=== PATIENT | female | born 1995 | race Caucasian/White ===

== ENCOUNTER 2021-12-10 08:56 | Outpatient (CLI) | payer BC | END 2021-12-10 08:57 | disposition home or self-care (01) | LOC: CSHRAD 08:56 | PROVIDERS: ATTEND Internal Medicine Pulmonary Disease | DX: R13.10 Dysphagia, unspecified (principal); R06.00 Dyspnea, unspecified | CPT/HCPCS: 74220; 94010; 94726; 94729; 94760 ==

== ENCOUNTER 2023-08-17 20:55 | Emergency (ER) | payer SELFPAY ==
[2023-08-17 22:18] LABS: #Basophils 0.1 10x3/uL (0.0-0.2); #Eosinphils 0.1 10x3/uL (0.0-0.5); #Monocytes 0.4 10x3/uL (0.0-1.1); #Neutrophils 4.2 10x3/uL (1.5-8.4); %Basophils 0.9 % (0.0-2.0); %Eosinophils 0.9 % (0.0-6.0); %Lymphocytes 26.3 % (18.0-47.0); %Monocytes 6.8 % (0.0-10.0); %Neutrophils 64.9 % (40.0-75.0); Hemoglobin 12.7 g/dL (12.0-15.5); Mean Corpuscular HGB CONC 35.3 g/dL (32.0-36.0); Mean Corpuscular Hemoglobin 31.8 pg (27.0-33.0); Mean Platelet Volume 12.3 fl (7.4-10.4); Platelet Count 179 10x3/uL (150-450); RBC Distribution Width 12.5 % (11.5-14.5); White Blood Cell (WBC) Count 6.5 10x3/uL (3.5-10.5)
[2023-08-17 22:31] LABS: ALT (SGPT) 9 U/L (8-55); AST (SGOT) 17 U/L (5-34); Albumin 4.3 g/dL (3.5-5.0); Alkaline Phosphatase 59 U/L (40-110); Anion Gap 14 mmol/L (10-20); BUN (Urea Nitrogen) 10 mg/dL (7.0-18.7); Bilirubin, Total 0.4 mg/dL (0.2-1.2); Calc. Creatinine Clearance 0 mL/min (70-130); Carbon Dioxide 21 mmol/L (22-29); Chloride 105 mmol/L (98-107); Estimated GFR 80; Globulin 3.3 g/dL (2.4-3.5); Glucose 97 mg/dL (70-105); Potassium 4.2 mmol/L (3.5-5.1); Protein, Total 7.6 g/dL (6.0-8.3); Sodium 136 mmol/L (136-145)
[2023-08-17 22:36] LABS: BHCG - Serum Negative (NEGATIVE); Pregs Control Background? CLEAR/WHITE (CLR/WHITE); Pregs Control Bar Appear? YES (CONTROL BAR)
[2023-08-17 22:37] LABS: Troponin I Less than 0.010 ng/mL (< 0.028)
== END 2023-08-18 00:33 | disposition home or self-care (01) ==
LOC: CSHERS 20:55
DX: R42 Dizziness and giddiness (principal); R07.89 Other chest pain
CPT/HCPCS: 80053; 84484; 84703; 85025; 85379; 93005

== ENCOUNTER 2023-08-27 05:31 | Emergency (ER) | payer SELFPAY ==
[2023-08-27] MEDS ORDERED: Ondansetron PF 4 MG/2 ML Vial ONE (06:08)
[2023-08-27] MEDS ORDERED: Promethazine HCl 12.5 MG in Sodium Chloride 0.9% 50 ML IVPB SCH (06:30)
[2023-08-27 06:37] LABS: #Eosinphils 0.1 10x3/uL (0.0-0.5); #Monocytes 0.3 10x3/uL (0.0-1.1); #Neutrophils 1.6 10x3/uL (1.5-8.4); %Basophils 0.7 % (0.0-2.0); %Eosinophils 1.2 % (0.0-6.0); %Lymphocytes 50.7 % (18.0-47.0); %Monocytes 8.3 % (0.0-10.0); %Neutrophils 39.1 % (40.0-75.0); Hemoglobin 12.7 g/dL (12.0-15.5); Mean Corpuscular HGB CONC 34.3 g/dL (32.0-36.0); Mean Corpuscular Volume 90.2 fl (81.6-98.3); Mean Platelet Volume 12.1 fl (7.4-10.4); Platelet Count 153 10x3/uL (150-450); RBC Distribution Width 12.6 % (11.5-14.5); White Blood Cell (WBC) Count 4.1 10x3/uL (3.5-10.5)
[2023-08-27 06:38] LABS: BHCG - Serum Negative (NEGATIVE); Pregs Control Background? CLEAR/WHITE (CLR/WHITE); Pregs Control Bar Appear? YES (CONTROL BAR)
[2023-08-27 06:44] LABS: ALT (SGPT) 9 U/L (8-55); AST (SGOT) 15 U/L (5-34); Albumin 4.4 g/dL (3.5-5.0); Alkaline Phosphatase 59 U/L (40-110); Anion Gap 13 mmol/L (10-20); BUN (Urea Nitrogen) 13 mg/dL (7.0-18.7); Bilirubin, Total 0.7 mg/dL (0.2-1.2); Calc. Creatinine Clearance 0 mL/min (70-130); Calcium 9.3 mg/dL (7.8-10.44); Carbon Dioxide 25 mmol/L (22-29); Chloride 104 mmol/L (98-107); Estimated GFR 91; Globulin 3.2 g/dL (2.4-3.5); Glucose 91 mg/dL (70-105); Lipase 11 U/L (8-78); Potassium 3.4 mmol/L (3.5-5.1); Protein, Total 7.6 g/dL (6.0-8.3); Sodium 139 mmol/L (136-145)
[2023-08-27 08:06] LABS: Bilirubin Neg (Negative); Blood, Urine 25 (Negative); Clarity Slightly Cloudy (Clear); Glucose, Urine (Dipstick) Normal (Negative); Ketone, Urine 5 mg/dL (Negative); Leukocyte Negative (Negative); Nitrite Negative (Negative); Protein, Urine (Dipstick) 30 mg/dl (Neg-Trace); Specific Gravity, Urine 1.025 (1.005-1.030); Urobilinogen Normal mg/dL (Less than 2)
[2023-08-27 08:17] LABS: RBC/HPF 0-3 HPF (0-3)
[2023-08-27 08:21] LABS: CAUTI Indications for Culture Pelvic or flank pain; WBC/HPF 0-3 HPF (0-3)
[2023-08-27 08:22] LABS: Squamous Epithelial 0-3 HPF (0-3)
[2023-08-27 08:23] LABS: Bacteria/HPF 1+ HPF (None Seen); Mucous/LPF 2+ LPF (<2+)
[2023-08-27 08:24] LABS: Calcium Oxalate Crystals 1+ HPF (None Seen)
[2023-08-27 08:26] LABS: Urine Culture Reflex No No
== END 2023-08-27 08:25 | disposition home or self-care (01) ==
LOC: CSHERS 05:31
DX: R11.10 Vomiting, unspecified (principal); E86.0 Dehydration
CPT/HCPCS: 36416; 80053; 81001; 83605; 83690; 84443; 84703; 85025; 96361; 96374; 96375; J2405; J2550